=== PATIENT | female | born 1955 | race Caucasian/White ===

== ENCOUNTER → 2020-04-27 15:06 | Outpatient (ROUT) | payer MEDICARE, SELFPAY ==
[2020-04-27 15:15] LABS: Add Manual Diff / Slide Review NO; Basophils Absolute Auto 0 /uL (0-100); Basophils Percent Auto 1.4 % (0-2); Eosinophils Absolute Auto 100 /uL (0-450); Eosinophils Percent Auto 3.9 % (2-4); Hematocrit 39.8 % (36-46); Hemoglobin 13.5 g/dL (12.0-16.0); Lymphocytes Absolute Auto 1300 /uL (1100-4500); Lymphocytes Percent Auto 40.1 % (25-40); Mean Corpuscular HGB Conc 33.9 % (30-36); Mean Corpuscular Hemoglobin 30.3 PG (26-34); Mean Corpuscular Volume 89.6 fL (80-100); Monocytes Absolute Auto 500 /uL (0-900); Monocytes Percent Auto 14.2 % (3-14); Neutrophils Absolute Auto 1300 /uL (1500-7000); Neutrophils Percent Auto 40.4 % (50-75); Platelet Count 185 X10^3/uL (150-400); Red Blood Cell Count 4.44 X10^6/uL (4.0-5.2); Red Cell Distribution Width 14.5 % (11.6-14.8); White Blood Cell Count 3.2 X10^3/uL (4.5-11.0)
[2020-04-27 15:40] LABS: Alanine Aminotransferase 32 IU/L (<35); Albumin Globulin Ratio 1.4 (1.0-2.8); Alkaline Phosphatase 62 U/L (38-126); Aspartate Aminotransferase 30 IU/L (14-36); BUN Creatinine Ratio 21.7 (6-22); Bilirubin Total 0.5 mg/dL (0.2-1.3); Blood Urea Nitrogen 15 mg/dL (7-17); Calcium 9.5 mg/dL (8.4-10.2); Carbon Dioxide 25 mmol/L (22-32); Chloride 109 mmol/L (98-107); Cholesterol 234 mg/dL (140-199); Estimated Glomerular Filt Rate > 60.0 mL/min (>60); Globulin 2.9 g/dL (1.7-4.1); Glucose 85 mg/dL (80-110); HDL Cholesterol 76 mg/dL (40-60); HEMOLYSIS < 15 (0-50); LDL Cholesterol Calculated 145 mg/dL (<100); Potassium 4.3 mmol/L (3.4-5.1); Sodium 140 mmol/L (137-145); Total Protein 6.9 g/dL (6.3-8.2); Triglycerides 67 mg/dL (35-150)
== END ==
PROVIDERS: Family Provider Internal Medicine Nephrology; PCP Internal Medicine Nephrology; Visit Provider Physician Assistant
DX: E78.2 Mixed hyperlipidemia (principal)
CPT/HCPCS: 80053; 80061; 85025

== ENCOUNTER → 2020-09-03 08:03 | Outpatient (CLI) | payer MEDICARE, SELFPAY ==
[2020-09-03] MEDS: COVID-19 VACC #1, MRNA(MOD) 100 MCG/0.5 ML VIAL IM (08:10)
== END ==
PROVIDERS: Family Provider Internal Medicine Nephrology; PCP Internal Medicine Nephrology; Visit Provider Internal Medicine
DX: Z23 Encounter for immunization (principal)
CPT/HCPCS: 0011A; 91301

== ENCOUNTER → 2020-10-01 08:15 | Outpatient (CLI) | payer MEDICARE, SELFPAY ==
[2020-10-01] MEDS: COVID-19 VACC #2, MRNA(MOD) 100 MCG/0.5 ML VIAL IM (08:19)
== END ==
PROVIDERS: Family Provider Internal Medicine Nephrology; PCP Internal Medicine Nephrology; Visit Provider Internal Medicine
DX: Z23 Encounter for immunization (principal)
CPT/HCPCS: 0012A; 91301

== ENCOUNTER 2021-05-21 08:45 | Emergency (ER) | payer OTHER, SELFPAY ==
[2021-05-21 09:09] VITALS: BP 133/74; PULSE 79; RESP 18; TEMP 36.7; O2SAT 98; BMI 30.2
--- NOTE | 2021-05-21 09:10 | ED.HEATRA ---
HPI - Head Injury General Chief complaint: Head Injury Stated complaint: fall last night/hit head/headache/bleeding Time Seen by Provider: 05/21/21 09:08 History of Present Illness HPI Narrative: Otherwise healthy 65-year-old woman who usually lives in [place] is in [place] for the last 2 weeks. She notes that typically at home she wears flip-flops only since she has been to and of course she has been having severe foot cramps that she isn't sure if they are related to this use, cold, increased walking. Because of the severe foot cramps last night in the middle of the night she was sitting in her bathroom (currently living on her boat small bathroom sitting) on the toilet feet in the shower trying to warm her feet to see if this might help with the cramps when she woke up on the floor wedged between the toilet in the shower with a laceration to the posterior portion of her scalp. She does not describe pain, palpitations, fevers, cough, chills prior to the event. She does not have any recollection of standing slipping or falling. She has no other points of tenderness or trauma including neck or extremities. She has never had a similar episode. Today she is complaining only of the head laceration. Denies vomiting, nausea, abdominal pain, diarrhea. No focal neurologic complaints. Related Data Allergies Allergy/AdvReac Type Severity Reaction Status Date / Time shellfish derived Allergy Unknown Verified 05/21/21 09:09 [SHELLFISH DERIVED] Review of Systems Review of Systems Narrative: Remainder of complete review of systems is otherwise unremarkable except for that included in the HPI. Patient History Social History Smoking Status: Never smoker Exam Narrative Exam Narrative: General: Healthy appearing, in no acute distress. Able to give a complete and coherent history. Well-nourished well-developed HEENT: Moist mucous membranes, normal sclera with reactive pupils, 1 cm laceration to the left occiput without hematoma. No tenderness with skull manipulation. Bleeding is currently controlled Neck: No midline cervical spine tenderness, supple Respiratory: Lungs are clear to auscultation, no wheezing no rales no rhonchi. Full and symmetrical air movement Cardiac: Regular rate and rhythm no murmurs no bruits Abdomen: Soft, nontender, good bowel tones, no flank pain Skin: Warm and dry, no rashes Neurologic: Grossly neurologically intact with no obvious asymmetries or abnormalities Extremities: No trauma, well perfused, palpable dorsalis pedis pulses bilaterally with no obvious foot abnormalities. Psych: Cooperative, appropriate insight and affect Initial Vital Signs Initial Vital Signs: Vital Signs Temperature 98.0 F 05/21/21 09:09 Pulse Rate 79 05/21/21 09:09 Respiratory Rate 18 05/21/21 09:09 Blood Pressure 133/74 05/21/21 09:09 Pulse Oximetry 98 05/21/21 09:09 Procedures Laceration Repair Scalp laceration: Time of procedure: 11:33 Site: scalp Side (If applicable): left Size (cm): 1.5 Description: linear Depth: simple, single layer Pre-repair: wound explored and deep structures intact Skin layer closed with: eula Number of sutures: 1 Course Orders Ordered: ED Orders 05/21/21 09:40 CT head/brain wo con Stat 05/21/21 10:00 Complete Blood Count AUTO DIFF Stat Comprehensive Metabolic Panel Stat Magnesium Stat Troponin I Stat Vital Signs Vital signs: Vital Signs - 8 hr 05/21/21 09:09 Temperature 98.0 F Pulse Rate 79 Respiratory Rate 18 Blood Pressure 133/74 Pulse Oximetry 98 MDM - Head Injury Lab Data Result diagrams: 05/21/21 10:00 05/21/21 10:00 Labs: Lab Results 05/21/21 05/21/21 05/21/21 Range/Units 10:00 10:00 10:00 WBC 4.7 (4.5-11.0) X10^3/uL RBC 4.59 (4.0-5.2) X10^6/uL Hgb 13.6 (12.0-16.0) g/dL Hct 41.2 (36-46) % MCV 89.8 (80-100) fL MCH 29.6 (26-34) PG MCHC 33.0 (30-36) % RDW 14.4 (11.6-14.8) % Plt Count 217 (150-400) X10^3/uL Neut % (Auto) 64.9 (50-75) % Lymph % (Auto) 20.4 L (25-40) % Shannon % (Auto) 13.2 (3-14) % Eos % (Auto) 0.5 L (2-4) % Baso % (Auto) 1.0 (0-2) % Neut # (Auto) 3100 (1373-2346) /uL Lymph # (Auto) 1000 L (7568-2434) /uL Shannon # (Auto) 600 (0-900) /uL Eos # (Auto) 0 (0-450) /uL Baso # (Auto) 0 (0-100) /uL Sodium 141 (137-145) mmol/L Potassium 4.6 (3.4-5.1) mmol/L Chloride 108 H (98-107) mmol/L Carbon Dioxide 25 (22-32) mmol/L BUN 24 H (7-17) mg/dL Creatinine 0.79 (0.52-1.04) mg/dL Estimated GFR > 60.0 (>60) mL/min BUN/Creatinine Ratio 30.4 H (6-22) Glucose 102 (80-110) mg/dL Calcium 9.9 (8.4-10.2) mg/dL Magnesium 2.0 (1.6-2.3) mg/dL Total Bilirubin 0.3 (0.2-1.3) mg/dL AST 35 (14-36) IU/L ALT 37 H (<35) IU/L Alkaline Phosphatase 59 (38-126) U/L Troponin I < 0.012 (0.01-0.034) ng/mL Total Protein 7.4 (6.3-8.2) g/dL Albumin 4.6 (3.5-5.0) g/dL Globulin 2.8 (1.7-4.1) g/dL Albumin/Globulin Ratio 1.6 (1.0-2.8) Imaging Data CT scan - head: Radiologist's Impression: FINDINGS:? Image quality:? Excellent.? ? CSF spaces:? Basal cisterns are patent.? No extra-axial fluid collections.? The ventricles are symmetric in size and shape.? ? Brain:? No intracranial bleeds or masses.? There is cerebral volume loss for age, with resultant ventricular and sulcal prominence.? There are periventricular and deep white matter chronic small vessel ischemic changes.? There is intracranial internal carotid artery atherosclerosis.? ? Skull and face:? Mild scalp laceration with hematoma can be seen left parietal region.? No underlying calvarial fracture can seen, ? Calvarium and visualized facial bones appear intact, without suspicious lesions.? ? Sinuses:? Visualized sinuses and mastoids are clear.? ? ? IMPRESSION:? No acute intracranial hemorrhage is seen.? ? No acute intracranial process is seen.? ? Left parietal scalp hematoma laceration, without an associated fracture.? ? Dictated by: Shiv Tavera M.D. on 05/21/2021 at 8:50? ?? ECG Data Interpretation: Sinus rhythm at a rate of 76 Normal intervals, normal axis No acute ischemic changes MDM Narrative Medical decision making narrative: 65-year-old woman presents concerned only with scalp laceration however describes either a syncopal episode or a head injury severe enough that she has retrograde amnesia. Either way she needs appropriate head imaging and will also do a brief syncope workup as well as evaluating electrolytes giving the severe cramps in her feet that she has noticed. CT scan, x-ray, lab work and remainder of workup is entirely reassuring. The 1.5 cm laceration to her scalp was closed with a single staple without complication. We discussed postconcussion syndrome and encouraged her to return should she have any worsening symptoms. I am not seeing any evidence of life-threatening etiologies that may have caused a syncopal episode specifically, infection, acute coronary syndrome, dehydration, renal failure liver failure. Similarly there are no significant electrolyte abnormalities to explain the severe foot cramps that she is experiencing. Discharge Plan Departure Patient Disposition: Home Clinical Impression: Concussion with loss of consciousness, Laceration of scalp Instructions: DI for Postconcussion Syndrome, DI for Laceration Repair of the Scalp Activity Restrictions/Additional Instructions: Thank you for coming in today Thank you for letting me be thorough in your workup today. Without remembering exactly what happened I was concerned both with a syncopal episode or a concussion significant enough that you had that brief memory loss. Your workup was very reassuring. There is no evidence of life-threatening she findings like infection, blood loss, heart attacks, stroke or other reasons that you would need to remain in hospital. There is no bleeding inside your head and no skull fracture. A single staple that was placed today will need to be removed on or about May 30 If you have any worsening symptoms, please feel free to return to the ER
--- NOTE | 2021-05-21 09:40 | DI.CT.S_ITS ---
PROCEDURE: CT HEAD/BRAIN WO CON INDICATIONS: syncope, fall, head lac, retrograde amnesia TECHNIQUE: Noncontrast 4.5 mm thick angled axial sections acquired from the foramen magnum to the vertex, with coronal and sagittal reformats. For radiation dose reduction, the following was used: automated exposure control, adjustment of mA and/or kV according to patient size. COMPARISON: None. FINDINGS: Image quality: Excellent. CSF spaces: Basal cisterns are patent. No extra-axial fluid collections. The ventricles are symmetric in size and shape. Brain: No intracranial bleeds or masses. There is cerebral volume loss for age, with resultant ventricular and sulcal prominence. There are periventricular and deep white matter chronic small vessel ischemic changes. There is intracranial internal carotid artery atherosclerosis. Skull and face: Mild scalp laceration with hematoma can be seen left parietal region. No underlying calvarial fracture can seen, Calvarium and visualized facial bones appear intact, without suspicious lesions. Sinuses: Visualized sinuses and mastoids are clear. IMPRESSION: No acute intracranial hemorrhage is seen. No acute intracranial process is seen. Left parietal scalp hematoma laceration, without an associated fracture. Dictated by: Shiv Tavera M.D. on 05/21/2021 at 8:50 Approved by: Shiv Tavera M.D. on 05/21/2021 at 8:51
[2021-05-21 10:05] LABS: Add Manual Diff / Slide Review NO; Basophils Absolute Auto 0 /uL (0-100); Eosinophils Absolute Auto 0 /uL (0-450); Eosinophils Percent Auto 0.5 % (2-4); Hematocrit 41.2 % (36-46); Hemoglobin 13.6 g/dL (12.0-16.0); Lymphocytes Absolute Auto 1000 /uL (1100-4500); Lymphocytes Percent Auto 20.4 % (25-40); Mean Corpuscular Hemoglobin 29.6 PG (26-34); Mean Corpuscular Volume 89.8 fL (80-100); Monocytes Absolute Auto 600 /uL (0-900); Monocytes Percent Auto 13.2 % (3-14); Neutrophils Absolute Auto 3100 /uL (1500-7000); Neutrophils Percent Auto 64.9 % (50-75); Platelet Count 217 X10^3/uL (150-400); Red Blood Cell Count 4.59 X10^6/uL (4.0-5.2); Red Cell Distribution Width 14.4 % (11.6-14.8); White Blood Cell Count 4.7 X10^3/uL (4.5-11.0)
[2021-05-21 10:21] LABS: Alanine Aminotransferase 37 IU/L (<35); Albumin 4.6 g/dL (3.5-5.0); Albumin Globulin Ratio 1.6 (1.0-2.8); Alkaline Phosphatase 59 U/L (38-126); Aspartate Aminotransferase 35 IU/L (14-36); BUN Creatinine Ratio 30.4 (6-22); Bilirubin Total 0.3 mg/dL (0.2-1.3); Blood Urea Nitrogen 24 mg/dL (7-17); Calcium 9.9 mg/dL (8.4-10.2); Carbon Dioxide 25 mmol/L (22-32); Chloride 108 mmol/L (98-107); Estimated Glomerular Filt Rate > 60.0 mL/min (>60); Globulin 2.8 g/dL (1.7-4.1); Glucose 102 mg/dL (80-110); HEMOLYSIS < 15 (0-50); Potassium 4.6 mmol/L (3.4-5.1); Sodium 141 mmol/L (137-145); Total Protein 7.4 g/dL (6.3-8.2)
[2021-05-21 10:33] LABS: Troponin I < 0.012 ng/mL (0.01-0.034)
[2021-05-21 11:43] VITALS: BP 142/70; PULSE 68; O2SAT 100
== END 2021-05-21 11:52 | disposition home or self-care (01) ==
PROVIDERS: Emergency Provider Emergency Medicine; Family Provider Internal Medicine Nephrology
DX: S06.0X9A Concussion with loss of consciousness of unspecified duration, initial encounter (principal); S01.01XA Laceration without foreign body of scalp, initial encounter; W22.8XXA Striking against or struck by other objects, initial encounter
CPT/HCPCS: 12001; 70450; 80053; 83735; 84484; 85025; 93005; 93010; 99284